=== PATIENT | male | born 1965 | race African-American/Black ===

== ENCOUNTER 2018-12-07 11:10 | Inpatient (IN) | payer OTHER ==
[2018-12-07 12:47] VITALS: BMI 22.6
--- NOTE | 2018-12-07 13:11 | HP ---
CIWA Score Nausea/Vomitin-No Nausea/No Vomiting Muscle Tremors: 2 Anxiety: 0-No Anxiety, at Ease Agitation: 4-Moderately Restless Paroxysmal Sweats: No Perspiration Orientation: 1-Uncertain about Date Tacttile Disturbances: 2-Mild Itch/Numbness/Burn Auditory Disturbances: 0-None Visual Disturbances: 0-None Headache: 3-Moderate CIWA-Ar Total Score: 12 - Admission Criteria OASAS Guidelines: Admission for Medically Managed Detox: Requires at least one of the followin. CIWA greater than 12 2. Seizures within the past 24 hours 3. Delirium tremens within the past 24 hours 4. Hallucinations within the past 24 hours 5. Acute intervention needed for co occurring medical disorder 6. Acute intervention needed for co occurring psychiatric disorder 7. Severe withdrawal that cannot be handled at a lower level of care (continued vomiting, continued diarrhea, abnormal vital signs) requiring intravenous medication and/or fluids 8. Admission ROS S - HPI Allergies/Adverse Reactions: Allergies Allergy/AdvReac Type Severity Reaction Status Date / Time No Known Allergies Allergy Verified 12/07/18 12:30 History of Present Illness: pt here requesting detox from etoh use , reports 1/5 vodka/ day since 4 months ago , prior not as heavy use , reports tremors if not drinking , denies blackouts, + w/d seizures, most recently 2 weeks ago , EMS called pt declined hospital transfer , denies falls while intoxicated , latest use this morning , current symptoms as above . cocaine : 200 $/day via inhalation tobacco : 1/2 ppd PMHX : seizure d/o , asthma , SAD PSHx : denies meds : see list , brought in meds Exam Limitations: Clinical Condition - Ebola screening Have you traveled outside of the country in the last 21 days: No Have you had contact with anyone from an Ebola affected area: No Do you have a fever: No - Review of Systems Constitutional: See HPI EENT: reports: See HPI, Other (reading glasses) Respiratory: reports: No Symptoms reported Cardiac: reports: No Symptoms Reported GI: reports: No Symptoms Reported : reports: No Symptoms Reported Musculoskeletal: reports: No Symptoms Reported Integumentary: reports: Rash (right groin) Neuro: reports: See HPI, Seizure Endocrine: reports: No Symptoms Reported Psychiatric: reports: Orientated x3, Agitated, Anxious Patient History - Patient Medical History Hx Anemia: No Hx Asthma: No Hx Chronic Obstructive Pulmonary Disease (COPD): No Hx Cancer: No Hx Cardiac Disorders: No Hx Congestive Heart Failure: No Hx Hypertension: No Hx Hypercholesterolemia: No Hx Pacemaker: No HX Cerebrovascular Accident: No Hx Seizures: Yes (alcohol related) Hx Dementia: No Hx Diabetes: No Hx Gastrointestinal Disorders: No Hx Liver Disease: No Hx Genitourinary Disorders: No Hx Sexually Transmitted Disorders: No Hx Renal Disease (ESRD): No Hx Thyroid Disease: No Hx Human Immunodeficiency Virus (HIV): No Hx Hepatitis C: Yes Hx Depression: Yes (insomnia) Hx Suicide Attempt: No Hx Schizophrenia: Yes (Presently on Medication) - Patient Surgical History Past Surgical History: No Hx Neurologic Surgery: No Hx Cataract Extraction: No Hx Cardiac Surgery: No Hx Lung Surgery: No Hx Breast Surgery: No Hx Breast Biopsy: No Hx Abdominal Surgery: No Hx Appendectomy: No Hx Cholecystectomy: No Hx Genitourinary Surgery: No Hx Section: No Hx Orthopedic Surgery: No Anesthesia Reaction: No - PPD History Date: 10/08/12 - Smoking Cessation Smoking history: Former smoker Have you smoked in the past 12 months: Yes Aproximately how many cigarettes per day: 0 Hx Chewing Tobacco Use: No Initiated information on smoking cessation: No - Substances abused Crack Substance route: Smoking Frequency: Daily Amount used: over 200 dollars Age of first use: 25 Date of last use: 12/07/18 Cocaine Substance route: Inhalation Frequency: Daily Amount used: about 150 dollars Age of first use: 19 Date of last use: 12/07/18 Marijuana/Hashish Substance route: Smoking Frequency: Daily Amount used: 50 dollars Age of first use: 14 Date of last use: 12/07/18 Alcohol Substance route: Oral Frequency: Daily Amount used: a fifth of vodka Age of first use: 18 Date of last use: 12/07/18 Family Disease History - Family Disease History Family Disease History: Diabetes: Mother (htn), Other: Father (d. 70's lung CA ) , Mother Admission Physical Exam BHS - Vital Signs Vital Signs: Vital Signs - 24 hr 12/07/18 12:30 Temperature 97.0 F L Pulse Rate 84 Respiratory 16 Rate Blood Pressure 96/62 - Physical General Appearance: Yes: Disheveled, Mild Distress, Anxious HEENTM: Yes: EOMI, Hearing grossly Normal, Normocephalic, Normal Voice, Other ( poor dentition upper dentures) Respiratory: Yes: Chest Non-Tender, Lungs Clear, Normal Breath Sounds Neck: Yes: No masses,lesions,Nodules, Trachea in good position Cardiology: Yes: Regular Rhythm, Regular Rate, S1, S2 Abdominal: Yes: Non Tender, Soft Back: Yes: Normal Inspection Musculoskeletal: Yes: Gait Steady Neurological: Yes: Alert, Motor Strength 5/5 Integumentary: Yes: Warm, Rash (bilateral inner thighs macular no d/c , pruritic) - Diagnostic (1) Alcohol abuse Current Visit: Yes Status: Active (2) Cocaine dependence Current Visit: Yes Status: Chronic (3) Tobacco dependence Current Visit: Yes Status: Chronic Breathalyzer - Breathalyzer Breathalyzer: 0 Urine Drug Screen - Test Device Lot number: [id number] Expiration date: 07/02/20 - Control Is test valid?: Yes - Results Drug screen NEGATIVE: No Urine drug screen results: THC-Marijuana, SABAS-Cocaine Inpatient Rehab Admission - Rehab Decision to Admit Inpatient rehab admission?: No
[2018-12-07] MEDS ORDERED: chlordiazePOXIDE HCL 25 MG CAPSULE PO PRN (13:15)
[2018-12-07] MEDS ORDERED: MAGNESIUM HYDROX 2400MG/30ML ORAL SUSPENSION 30 ML CUP PO PRN (13:15)
[2018-12-07] MEDS ORDERED: ACETAMINOPHEN 325 MG TABLET (FP) PO PRN ×2 (13:15)
[2018-12-07] MEDS ORDERED: hydrOXYzine PAMOATE 25 MG CAPSULE (FP) PO PRN (13:15)
[2018-12-07] MEDS ORDERED: MAGNESIUM CITRATE 300 ML BOTTLE PO PRN (13:15)
[2018-12-07] MEDS ORDERED: MAG HYDROX/AL HYDROX/SIMETH 30 ML UNIT-DOSE CUP PO PRN (13:15)
[2018-12-07] MEDS ORDERED: NICOTINE POLACRILEX 2 MG GUM BUC PRN (13:15)
[2018-12-07] MEDS ORDERED: MENTHOL/PHENOL 1 EACH UD MM PRN (13:15)
[2018-12-07] MEDS ORDERED: IBUPROFEN 400 MG TABLET (FP) PO PRN (13:15)
[2018-12-07] MEDS ORDERED: DICYCLOMINE HCL 10 MG CAPSULE PO PRN (13:15)
[2018-12-07] MEDS: levETIRAcetam XR 500 MG TAB PO SCH ×2 (15:05→22:17)
[2018-12-07] MEDS: chlordiazePOXIDE HCL 25 MG CAPSULE PO SCH ×2 (17:22→22:17)
[2018-12-07] MEDS: THIAMINE HCL 100 MG TABLET (FP) PO SCH (22:17)
[2018-12-07] MEDS: MELATONIN 5 MG TABLETS PO PRN (22:17)
[2018-12-08] MEDS: chlordiazePOXIDE HCL 25 MG CAPSULE PO SCH ×4 (07:19→23:01)
--- NOTE | 2018-12-08 09:52 | CONSULT ---
[facility] Psychiatric Consult - Data Date of interview: 12/08/18 Admission source: [facility], [place] Identifying data: Mr Ring is a 52 years old single Black male, father od a 26 years old daughter, unemployed receiving SSI, homeless seeking detox treatment for alcohol, cocaine and canabis Substance Abuse History: Reports history of alcohol, crack cocaine and marijuana use. Refer to addiction counselor's summary for further information Medical History: Significant for bronchial asthma, seizure disorder, HIV, history of treatment for hepatitis C. Smokes 10 cigarettes daily Psychiatric History: Reports that his first psychiatric contact was in 1989 when he was admitted to [facility] for command auditory hallucinations. He was diagnosed with Schizophrenia and started on psychotripic medications. Reports 3 subsequent hospitalizations at [facility], [facility] and most recently in 2017 at [facility]. Reports receiving outpatient psychiatric treatment at [facility] and he is prescribed Seroquel 400 mg po BID. External medication claims shows script for 28 days supply of Seroquel 100 mg#56 filled at [facility] on 11/09/18. Patient claims he brought his medications with him and nurse confirms it was verified by her. However, [facility] pharmacy was [phone] and medical writer was told scripts for 56 tablets of Seroquel 100 mg /bid was filled on 11/09. Denies previous suicidl attempt. At present, denies experiencing psychotic symptoms, S/H ideations Physical/Sexual Abuse/Trauma History: Denies history of emotional, physical or sexual abuse as wel as DV relationship. No service Additional Comment: Reports history of 2 previous arrests including 3 felony convictions. Denies being on parole/probation Mental Status Exam - Mental Status Exam Alert and Oriented to: Place, Person Cognitive Function: Fair Patient Appearance: Well Groomed Mood: Hopeful, Euthymic Patient Behavior: Cooperative Speech Pattern: Clear Voice Loudness: Normal Thought Process: Intact, Goal Oriented Thought Disorder: Not Present Hallucinations: Denies Suicidal Ideation: Denies Homicidal Ideation: Denies Insight/Judgement: Poor Sleep: Poorly Appetite: Poor Muscle strength/Tone: Normal Gait/Station: Normal Psychiatric Findings - Problem List (Independence 1, 2,3) (1) Schizophrenia Current Visit: No Status: Acute (2) Substance-induced sleep disorder Current Visit: Yes Status: Acute (3) Alcohol dependence with uncomplicated withdrawal Current Visit: Yes Status: Acute (4) Cocaine dependence Current Visit: Yes Status: Acute (5) Cannabis dependence Current Visit: Yes Status: Acute (6) Hepatitis C carrier Current Visit: No Status: Resolved (7) Human immunodeficiency virus infection Current Visit: No Status: Acute (8) Bronchial asthma Current Visit: Yes Status: Chronic - Initial Treatment Plan Initial Treatment Plan: 1) Continue Seroquel 100 mg po BID for now. 2) Retrieve bottle of Seroquel from patient's property and prescribe accordingly. 3) Continue inpatient detoxification
[2018-12-08] MEDS: PRENATAL VITAMINS W/ FOLIC ACID TABLET (FP) PO SCH (10:19)
[2018-12-08] MEDS: levETIRAcetam XR 500 MG TAB PO SCH ×2 (10:20→23:43)
[2018-12-08 12:35] LABS: HEMATOCRIT 40.2 % (35.4-49); HEMOGLOBIN 12.8 GM/dL (11.7-16.9); MCH 28.5 pg (25.7-33.7); MCHC 31.9 g/dl (32.0-35.9); MEAN CELL VOLUME 89.5 fl (80-96); MEAN PLT VOLUME 9.4 fl (7.5-11.1); PLATELET COUNT 143 K/MM3 (134-434); RBC 4.49 M/mm3 (4.00-5.60); RDW 14.8 % (11.9-15.9); WHITE BLOOD COUNT 5.3 K/mm3 (4.0-10.0)
[2018-12-08 12:55] LABS: ALBUMIN 3.2 g/dl (3.4-5.0); ALK PHOS 78 U/L (45-117); ANION GAP 5 MMOL/L (8-16); BILIRUBIN,TOTAL 0.2 mg/dL (0.2-1); BLOOD UREA NITROGEN 15 mg/dL (7-18); CALCIUM 8.9 mg/dL (8.5-10.1); CHLORIDE 107 mmol/L (98-107); CO2 28 mmol/L (21-32); CREATININE 0.9 mg/dL (0.55-1.3); GLUCOSE,RANDOM 76 mg/dL (74-106); POTASSIUM 4.3 mmol/L (3.5-5.1); SGOT/AST 25 U/L (15-37); SGPT/ALT 21 U/L (13-61); SODIUM 139 mmol/L (136-145); TOT PROT 7.3 g/dl (6.4-8.2)
[2018-12-08] MEDS ORDERED: ONDANSETRON *ODT* 4 MG TABLET SL PRN (13:32)
--- NOTE | 2018-12-08 17:29 | PN ---
S CIWA - CIWA Score Nausea/Vomitin Muscle Tremors: None Anxiety: 1-Mildly Anxious Agitation: 0-Normal Activity Paroxysmal Sweats: 3 Orientation: 2-Disoriented Date<2 days Tacttile Disturbances: 2-Mild Itch/Numbness/Burn Auditory Disturbances: 0-None Visual Disturbances: 2-Mild Sensitivity Headache: 2-Mild CIWA-Ar Total Score: 17 BHS Progress Note (SOAP) Subjective: Vomiting, Diarrhea, Sweating, H/A, Fatigue. Objective: PATIENT A & O X 2 (UNCERTAIN ABOUT CURRENT DAY / DATE). IN NO ACUTE DISTRESS. 12/08/18 17:27 Vital Signs Temperature 98.4 F 12/08/18 16:50 Pulse Rate 60 12/08/18 16:50 Respiratory Rate 18 12/08/18 16:50 Blood Pressure 128/62 12/08/18 16:50 O2 Sat by Pulse Oximetry (%) Laboratory Tests 12/08/18 12/08/18 07:30 07:30 WBC 5.3 RBC 4.49 Hgb 12.8 Hct 40.2 MCV 89.5 MCH 28.5 MCHC 31.9 L RDW 14.8 Plt Count 143 MPV 9.4 Sodium 139 Potassium 4.3 Chloride 107 Carbon Dioxide 28 Anion Gap 5 L BUN 15 Creatinine 0.9 Creat Clearance w eGFR 88.96 Random Glucose 76 Calcium 8.9 Total Bilirubin 0.2 AST 25 ALT 21 Alkaline Phosphatase 78 Total Protein 7.3 Albumin 3.2 L LABS NOTED. RPR RESULT PENDING. 12/08/18 17:28 Assessment: 12/08/18 17:27 WITHDRAWAL SYMPTOMS. Plan: CONTINUE DETOX. INCREASE DAILY PO FLUID / WATER INTAKE. PRN ZOFRAN SL FOR NAUSEA.
[2018-12-08] MEDS: THIAMINE HCL 100 MG TABLET (FP) PO SCH (23:01)
[2018-12-08] MEDS: MELATONIN 5 MG TABLETS PO PRN (23:02)
[2018-12-09] MEDS: chlordiazePOXIDE HCL 25 MG CAPSULE PO SCH ×2 (06:33→10:50)
[2018-12-09] MEDS: PRENATAL VITAMINS W/ FOLIC ACID TABLET (FP) PO SCH (10:49)
[2018-12-09] MEDS: levETIRAcetam XR 500 MG TAB PO SCH ×2 (10:49→22:35)
--- NOTE | 2018-12-09 11:35 | PN ---
S CIWA - CIWA Score Nausea/Vomitin Muscle Tremors: 2 Anxiety: 2 Agitation: 2 Paroxysmal Sweats: 1-Minimal Palms Moist Orientation: 0-Oriented Tacttile Disturbances: 1-Very Mild Itch/Numbness Auditory Disturbances: 1-Very Mild Visual Disturbances: 0-None Headache: 2-Mild CIWA-Ar Total Score: 13 BHS Progress Note (SOAP) Subjective: alert,irritable,anxious,interrupted sleep,tremor Objective: 12/09/18 11:34 Vital Signs Temperature 97.7 F 12/09/18 09:19 Pulse Rate 81 12/09/18 09:19 Respiratory Rate 18 12/09/18 09:19 Blood Pressure 106/62 12/09/18 09:19 O2 Sat by Pulse Oximetry (%) 12/09/18 11:34 Laboratory Last Values WBC 5.3 K/mm3 (4.0-10.0) 12/08/18 07:30 RBC 4.49 M/mm3 (4.00-5.60) 12/08/18 07:30 Hgb 12.8 GM/dL (11.7-16.9) 12/08/18 07:30 Hct 40.2 % (35.4-49) 12/08/18 07:30 MCV 89.5 fl (80-96) 12/08/18 07:30 MCH 28.5 pg (25.7-33.7) 12/08/18 07:30 MCHC 31.9 g/dl (32.0-35.9) L 12/08/18 07:30 RDW 14.8 % (11.9-15.9) 12/08/18 07:30 Plt Count 143 K/MM3 (134-434) 12/08/18 07:30 MPV 9.4 fl (7.5-11.1) 12/08/18 07:30 Sodium 139 mmol/L (136-145) 12/08/18 07:30 Potassium 4.3 mmol/L (3.5-5.1) 12/08/18 07:30 Chloride 107 mmol/L (98-107) 12/08/18 07:30 Carbon Dioxide 28 mmol/L (21-32) 12/08/18 07:30 Anion Gap 5 MMOL/L (8-16) L 12/08/18 07:30 BUN 15 mg/dL (7-18) 12/08/18 07:30 Creatinine 0.9 mg/dL (0.55-1.3) 12/08/18 07:30 Creat Clearance w eGFR 88.96 (>60) 12/08/18 07:30 Random Glucose 76 mg/dL (74-106) 12/08/18 07:30 Calcium 8.9 mg/dL (8.5-10.1) 12/08/18 07:30 Total Bilirubin 0.2 mg/dL (0.2-1) 12/08/18 07:30 AST 25 U/L (15-37) 12/08/18 07:30 ALT 21 U/L (13-61) 12/08/18 07:30 Alkaline Phosphatase 78 U/L (45-117) 12/08/18 07:30 Total Protein 7.3 g/dl (6.4-8.2) 12/08/18 07:30 Albumin 3.2 g/dl (3.4-5.0) L 12/08/18 07:30 RPR Titer Nonreactive (NONREACTIVE) 12/08/18 07:30 Assessment: 12/09/18 11:34 withdrawal symptom Plan: continue detox
[2018-12-09] MEDS ORDERED: chlordiazePOXIDE HCL 10 MG CAPSULE PO PRN (17:00)
[2018-12-09] MEDS: chlordiazePOXIDE HCL 10 MG CAPSULE PO SCH ×2 (18:25→22:34)
[2018-12-09] MEDS ORDERED: QUEtiapine FUMARATE 50 MG TABLET ONE (21:54)
[2018-12-09] MEDS: QUEtiapine FUMARATE 100 MG TABLET (FP) PO SCH (22:34)
[2018-12-09] MEDS: THIAMINE HCL 100 MG TABLET (FP) PO SCH (22:35)
[2018-12-10] MEDS: chlordiazePOXIDE HCL 10 MG CAPSULE PO SCH ×2 (06:55→10:31)
[2018-12-10 09:51] VITALS: BP 126/59; PULSE 90; TEMP 96.4
--- NOTE | 2018-12-10 10:15 | PN ---
BHS Progress Note (SOAP) Subjective: alert,irritable,anxious,interrupted sleep,pain in the body Objective: 12/10/18 10:14 Vital Signs Temperature 96.4 F L 12/10/18 09:50 Pulse Rate 90 12/10/18 09:50 Respiratory Rate 18 12/10/18 09:50 Blood Pressure 126/59 L 12/10/18 09:50 O2 Sat by Pulse Oximetry (%) Assessment: 12/10/18 10:14 withdrawal symptom Plan: continue detox,discharge in am
[2018-12-10] MEDS: QUEtiapine FUMARATE 100 MG TABLET (FP) PO SCH (10:31)
[2018-12-10] MEDS: PRENATAL VITAMINS W/ FOLIC ACID TABLET (FP) PO SCH (10:31)
[2018-12-10] MEDS: levETIRAcetam XR 500 MG TAB PO SCH (10:32)
--- NOTE | 2018-12-10 11:38 | PN ---
S Progress Note Note: pt states he is feeling better and prefer to go to rehab. He doesn't want to take anymore detox medication.
--- NOTE | 2018-12-10 11:40 | DS ---
[facility] Detox Discharge Summary Admission Date: 12/07/18 Discharge Date: 12/10/18 - History Present History: Alcohol Dependence, Cannabis Dependence, Cocaine Dependence - Physical Exam Results Vital Signs: Vital Signs Temperature 96.4 F L 12/10/18 09:50 Pulse Rate 90 12/10/18 09:50 Respiratory Rate 18 12/10/18 09:50 Blood Pressure 126/59 L 12/10/18 09:50 O2 Sat by Pulse Oximetry (%) - Treatment Hospital Course: Detox Protocol Followed, Detoxed Safely, Responded well, Discharged Condition Good, Rehab Referral Accepted - Medication Discharge Medications: Ambulatory Orders Benztropine Mesylate [Cogentin -] 5 mg PO BID 10/06/12 Quetiapine Fumarate [Seroquel -] 400 mg PO BID 12/21/12 Multivitamins [Multivit ([facility] Formulary)] 1 tab PO DAILY 12/07/18 levETIRAcetam [Keppra Xr -] 500 mg PO BID 12/07/18 - Diagnosis (1) Alcohol dependence with uncomplicated withdrawal Current Visit: Yes Status: Chronic (2) Cannabis dependence Current Visit: Yes Status: Chronic (3) Cocaine dependence Current Visit: Yes Status: Chronic (4) Substance-induced sleep disorder Current Visit: Yes Status: Acute (5) Tobacco dependence Current Visit: Yes Status: Chronic (6) Seizure Current Visit: No Status: Suspected (7) Human immunodeficiency virus infection Current Visit: No Status: Acute (8) Schizophrenia Current Visit: No Status: Acute (9) Hepatitis C carrier Current Visit: No Status: Resolved - AMA Did Patient Leave Against Medical Advice: No (referred to [facility] rehab)
[2018-12-10] MEDS ORDERED: chlordiazePOXIDE HCL 10 MG CAPSULE PO SCH (17:00)
== END 2018-12-10 12:53 | disposition other institution (70) | DRG 774 ==
LOC: YASAS 11:10 → Y6N 13:57
PROVIDERS: ADMIT Surgery; ATTEND Surgery
PROC: HZ2ZZZZ Detoxification Services for Substance Abuse Treatment (ICD-10-PCS; principal; 2018-12-07)
DX: F10.230 Alcohol dependence with withdrawal, uncomplicated (principal); F14.20 Cocaine dependence, uncomplicated; F12.20 Cannabis dependence, uncomplicated; F17.210 Nicotine dependence, cigarettes, uncomplicated; F19.282 Other psychoactive substance dependence with psychoactive substance-induced sleep disorder; F20.0 Paranoid schizophrenia; B20 Human immunodeficiency virus [HIV] disease; B18.2 Chronic viral hepatitis C; G40.909 Epilepsy, unspecified, not intractable, without status epilepticus; J45.909 Unspecified asthma, uncomplicated
CPT/HCPCS: 36415; 80053; 85027; 86593

== ENCOUNTER 2018-12-10 13:00 | Inpatient (IN) | payer OTHER | END 2018-12-15 07:30 | disposition home or self-care (01) | LOC: YASAS 13:00 → Y3W 13:01 ==